=== PATIENT | male | born 1985 | race Two or more races ===

== ENCOUNTER 2018-07-07 07:29 | Emergency (ER) | payer OTHER ==
[~2018-07-07] VITALS: Ht 170.2 cm; Wt 89.8 kg
--- NOTE | 2018-07-07 07:35 | NUR ---
PT C/O L flank pain since yesterday, aching 8/10 non radiating, Diarrhea since yesterday morning with LLQ abd pain. Denies N/V/D, pt is aaox4, not in respiratory distress, v/s stable, kept rested and comfortable, will continue to monitor.
--- NOTE | 2018-07-07 07:40 | NUR ---
SEEN AND EXAMINED BY DR. LATIF.
[2018-07-07] MEDS ORDERED: METHOCARBAMOL 750MG TABLET (07:41)
[2018-07-07] MEDS ORDERED: ALPRAZOLAM 0.5 MG (07:41)
[2018-07-07] MEDS ORDERED: FLUOXETINE HCL 20MG CAPSULE (07:41)
[2018-07-07] MEDS ORDERED: IBUPROFEN 600MG TABLET (07:41)
--- NOTE | 2018-07-07 07:44 | NUR ---
IV LINE ESTABLISHED, LABS DRAWNED AND SENT TO LAB.
[2018-07-07] MEDS ORDERED: ONDANSETRON HCL/PF 4 MG/2 ML VIAL ONE (07:46)
[2018-07-07] MEDS ORDERED: MORPHINE SULFATE INJ 4 MG/ML DISP.SYRIN ONE (07:46)
[2018-07-07] MEDS ORDERED: KETOROLAC TROMETHAMINE 15 MG/ML VIAL ONE (07:46)
[2018-07-07 07:48] LABS: BASOPHILS # (AUTO) 0.1 /CMM (0.0-0.2); EOSINOPHILS % (AUTO) 2.4 % (0.0-6.0); HEMATOCRIT 47 % (39-51); HEMOGLOBIN 16.2 g/dL (13.5-17.5); LYMPHOCYTES # (AUTO) 2.2 /CMM (0.8-4.8); LYMPHOCYTES % (AUTO) 25.7 % (20.0-44.0); MEAN CORPUSCULAR HGB CONC 34 g/dl (31.0-36.0); MEAN CORPUSCULAR VOLUME 84 fL (80-96); MONOCYTES # (AUTO) 0.8 /CMM (0.1-1.30); MONOCYTES % (AUTO) 9.2 % (2.0-12.0); NEUTROPHILS # (AUTO) 5.4 /CMM (1.8-8.9); NEUTROPHILS % (AUTO) 61.7 % (43.0-81.0); PLATELET COUNT (AUTO) 250 /CMM (150-450); RED BLOOD CELL COUNT(AUTO) 5.63 MIL/uL (4.5-6.0); WHITE BLOOD COUNT (AUTO) 8.7 K/uL (4.3-11.0)
[2018-07-07] MEDS: IV NS 0.9% 1,000 ML BAG IV ONE (07:54)
[2018-07-07 07:55] LABS: CALCIUM, SERUM 8.9 mg/dL (8.5-10.1); CREATININE 0.8 mg/dL (0.6-1.3); POTASSIUM 4.2 mmol/L (3.5-5.1)
[2018-07-07] MEDS: MORPHINE SULFATE INJ 2 MG/ML DISP.SYRIN IV ONE (07:55)
[2018-07-07] MEDS: KETOROLAC TROMETHAMINE INJ 30 MG/ML VIAL IV ONE (07:56)
[2018-07-07] MEDS: ONDANSETRON HCL/PF 4 MG/2 ML VIAL IVP ONE (07:56)
--- NOTE | 2018-07-07 07:57 | NUR ---
URINAL GIVEN BUT UNABLE TO PROVIDE URINE SPECIMEN.
[2018-07-07 08:01] LABS: ALBUMIN 4.1 g/dL (3.4-5.0); BILIRUBIN,DIRECT 0.1 mg/dL (0.0-0.2); BILIRUBIN,TOTAL 0.3 mg/dL (0.2-1.0); TOTAL PROTEIN, SERUM 7.9 g/dL (6.4-8.2)
--- NOTE | 2018-07-07 08:05 | NUR ---
pt is wheeled to ct scan via wheelchair.
--- NOTE | 2018-07-07 08:20 | NUR ---
tech at bedside for ultrasound.
[2018-07-07 08:32] LABS: APPEARANCE,URINE Clear (CLEAR); BILIRUBIN,URINE Negative (NEGATIVE); BLOOD, URINE Negative Ery/uL (NEGATIVE); COLOR,URINE Yellow (YELLOW); KETONES,URINE Negative (NEGATIVE); LEUKOCYTE ESTERASE ,URINE Negative (NEGATIVE); NITRITE, URINE Negative (NEGATIVE); PROTEIN,URINE Negative (NEGATIVE); UGLUCOSE 100 MG/DL mg/dL (NEGATIVE); UROBILINOGEN,URINE 0.2 EU/dL (0.2)
[2018-07-07 11:30] VITALS: BP 125/76
--- NOTE | 2018-07-07 11:30 | NUR ---
IV removed. Catheter intact and site benign. Pressure and 4x4 applied to site. No bleeding noted. Patient discharged to home in stable condition. Written and verbal after care instructions given. Patient verbalizes understanding of instruction.
== END 2018-07-07 11:49 | disposition home or self-care (01) ==
LOC: ER 07:31
DX: N43.3 Hydrocele, unspecified (principal); R11.10 Vomiting, unspecified; Z90.89 Acquired absence of other organs
CPT/HCPCS: 36415; 74176; 76870; 80048; 80076; 81001; 85025; 96361; 96374; 96375; 99284; J1885; J2270; J2405; J7030; 81000-TC

== ENCOUNTER 2018-10-05 13:23 | Emergency (ER) | payer OTHER ==
[~2018-10-05] VITALS: Ht 177.8 cm; Wt 127.0 kg
[~2018-10-05 13:23] MED LIST: ALPRAZOLAM 0.5 MG; FLUOXETINE HCL 20MG CAPSULE; IBUPROFEN 600MG TABLET; METHOCARBAMOL 750MG TABLET
[2018-10-05 13:28] VITALS: BP 117/78
--- NOTE | 2018-10-05 13:30 | NUR ---
RLE PAIN AND SWELLING S/P TRIPPED BACKWARDS AND HIT A METAL BAR AT WORK, PATIENT A/OX4, BREATHING EVEN AND UNLABORED, NO SOB NOTED. PATIENT WAS ABLE TO AMBULATE BUT LIMPING. KEPT COMFORTABLE IN BED.
[2018-10-05] MEDS ORDERED: KETOROLAC TROMETHAMINE INJ 30 MG/ML VIAL ONE (13:57)
--- NOTE | 2018-10-05 14:01 | NUR ---
RECEIVED VERBAL ORDER FROM JENNIFER CHARLES, TO GIVE TORADOL 30MG IM X1. AND Ofe STEELE. TORADOL 30MG GIVEN ON LEFT DELTOID IM. Addendum: 10/05/18 at 1403 by ROALCANCES ADDENDUM: KENNA RODRIGUEZ UNABLE TO INPUT ORDER IN Front Up AT THIS TIME.
--- NOTE | 2018-10-05 14:32 | NUR ---
WALKING BOOT PROVIDED.
== END 2018-10-05 14:33 | disposition home or self-care (01) ==
LOC: ER 13:23
DX: S80.11XA Contusion of right lower leg, initial encounter (principal); Z90.89 Acquired absence of other organs; Z79.899 Other long term (current) drug therapy; W01.198A Fall on same level from slipping, tripping and stumbling with subsequent striking against other object, initial encounter; Y93.89 Activity, other specified; Y92.89 Other specified places as the place of occurrence of the external cause; Y99.0 Civilian activity done for income or pay
CPT/HCPCS: 96372; 99283; J1885